=== PATIENT | male | born 1995 | race Caucasian/White ===

== ENCOUNTER 2023-02-21 10:55 | Emergency (ER) | payer OTHER, SELFPAY ==
[2023-02-21 11:08] VITALS: BP 138/89; PULSE 94; RESP 16; TEMP 36.4; O2SAT 99
--- NOTE | 2023-02-21 11:20 | ED.GENADULT ---
HPI - General Adult General Chief complaint: Ear Stated complaint: Ear Pain Source: patient, RN notes reviewed and old records reviewed Mode of arrival: ambulatory Limitations: no limitations History of Present Illness HPI narrative: 27-year-old male patient presents with left ear pain that started last p.m.. Patient states has slight congestion. Patient denies any other symptoms MD complaint: ear pain Onset (ago): day(s) (1) Related Data Home Medications Medication Instructions Recorded Confirmed amlodipine 10 mg tablet mg 02/21/23 bupropion HCl 150 mg 24 hr tablet, mg PO 02/21/23 extended release buspirone 15 mg tablet mg 02/21/23 cholecalciferol (vitamin D3) 125 02/21/23 mcg (5,000 unit) capsule (Dialyvite Vitamin D) famotidine 20 mg tablet mg 02/21/23 methylphenidate HCl 40 mg biphasic mg PO 02/21/23 30-70 capsule,extended release mycophenolate sodium 360 mg mg PO 02/21/23 tablet,delayed release prednisone 5 mg tablet mg 02/21/23 tacrolimus 1 mg capsule, mg 02/21/23 immediate-release Allergies Allergy/AdvReac Type Severity Reaction Status Date / Time amoxicillin Allergy Unknown Rash Verified 02/21/23 11:22 Review of Systems Constitutional: Constitutional: Reports no additional constitutional complaints, Denies body ache(s), Denies chills, Denies fatigue, Denies fever(s) and Denies headache(s) Eyes: Eyes: Reports no additional eye complaints and Denies blurry vision ENT: Reports system reviewed and no additional complaints, except as documented, Denies vertigo, Denies dizziness, Denies ear discharge, Reports otalgia, Denies facial pain, Denies headache(s), Denies nasal congestion, Denies nasal discharge, Denies sinus pain, Denies sinus pressure and Denies sore throat Cardiovascular: Cardiovascular: Reports no additional cardiovascular complaints, Denies chest pain, Denies chest pain at rest, Denies rapid heart rate and Denies dyspnea Respiratory: Respiratory: Reports no additional respiratory complaints, Denies chest congestion, Denies cough, Denies pain on inspiration, Denies pain with cough and Denies dyspnea Gastrointestinal: Gastrointestinal: Denies abdominal pain, Denies diarrhea, Denies nausea and Denies vomiting Integumentary/Breasts: Skin/Breast: Denies rash Neurologic: Reports system reviewed and no additional complaints, except as documented, Denies vertigo, Denies dizziness and Denies headache(s) Endocrine: Endocrine: Denies fatigue PMFSH Comments At the time of my signature, I reviewed and agree with the nursing past medical, surgical, social, and family history. There is no relevant family history pertinent to the patient complaint. Exam Const: General: cooperative, healthy appearing, no acute distress and well nourished Nutritional Appearance: well nourished Orientation/consciousness: patient oriented x3 Limitations: no limitations HENMT: Head: normal to inspection and normocephalic Ears: external ears normal, mastoids normal, Abnormal EAC present and TM abnormal bulging on the left and erythematous on the left Face/Nose/Sinus: normal facial exam Face and sinus: normal facial exam Mouth: Yes Normal oral and palatal mucosa present, Yes oropharynx normal and Yes moist mucous membranes Throat: tonsils normal, uvula midline and no uvular edema Eyes: General: appearance normal, both eyes and all related structures Sclera: sclerae normal Pupils: Equal, round and reactive pupils present Resp: Effort & Inspection: normal respiratory effort, able to speak in complete sentences, no audible wheezes, no cough, no respiratory distress and no retractions Cardio: Rate: regular rate Skin: General skin exam: normal color and no rashes or lesions noted Neuro: General: patient oriented x3 Cranial nerves: Yes Equal, round and reactive pupils present Psych: Appearance: grossly normal Mental Status: mental status grossly normal Speech and movement: Normal speech and movem
== END 2023-02-21 11:35 | disposition home or self-care (01) ==
PROVIDERS: Emergency Provider Registered Nurse; PCP Nurse Practitioner Family
DX: H66.002 Acute suppurative otitis media without spontaneous rupture of ear drum, left ear (principal); F41.9 Anxiety disorder, unspecified; F32.A Depression, unspecified; F90.9 Attention-deficit hyperactivity disorder, unspecified type; Z94.0 Kidney transplant status
CPT/HCPCS: 99203; G0463

== ENCOUNTER 2024-05-25 19:49 | Emergency (ER) | payer OTHER, SELFPAY ==
[2024-05-25 19:52] VITALS: BP 154/94; PULSE 88; RESP 20; TEMP 36.7; O2SAT 98
--- OUTSIDE RECORDS SUMMARY | 2024-05-25 19:52 | XMS_ITS | Referral Summary ---
Author Organization [facility] Address [address] [place] [address] Care Team Providers Care Litigation Services Manager Name Role Phone Yessy Wolfe NP Primary Care Provider [phone] Lexie Martin MD Unavailable Yesy Gavin RN Unavailable Encounters Date Type Department Care Team Description 05/05/2024 Orders Only [facility] Transplant Kidney [address] [id number] [place] [address] Yesy Gavin RN Kidney replaced by transplant (Primary Dx) 05/01/2024 Telephone [facility] Transplant Kidney [address] [phone] [place] [address] Yesy Gavin RN from Last 3 Months Allergies Active Allergy Reactions Criticality Noted Date Comments Amoxicillin Hives,Swelling,Rash Medium 01/30/2012 Happened when patient was a teenager Medications aspirin 81 mg enteric coated tablet Take 1 tablet (81 mg total) by mouth daily 30 tablet 08/24/19 22 Active cholecalciferol (Vitamin D3) 2000 unit tablet Take 1 tablet (2,000 Units total) by mouth daily 30 tablet 08/24/19 22 Active predniSONE (DELTASONE) 5 mg tablet TAKE ONE TABLET BY MOUTH EVERY DAY 30 tablet 09/05/19 24 Active biotin 10 mg tablet Active melatonin 10 mg tablet Active doxepin (SINEquan) 10 mg capsule Take 1 capsule (10 mg total) by mouth nightly 30 capsule 3 09/24/19 24 Active amLODIPine (NORVASC) 10 mg tablet TAKE ONE TABLET BY MOUTH EVERY DAY 30 tablet 11 09/26/19 24 Active PARoxetine (PAXIL) 20 mg tablet Take 1 tablet (20 mg total) by mouth every morning 90 tablet 1 10/11/19 24 Active methylphenidate CD (METADATE CD) 30 mg CR capsuleIndication s:Attention-Defic it Hyperactivity Disorder Take 1 capsule (30 mg total) by mouth every morning 30 capsule 12/11/19 24 Active famotidine (PEPCID) 20 mg tablet TAKE ONE TABLET BY MOUTH EVERY DAY 90 tablet 3 02/12/20 24 Active tacrolimus 1 mg immediate-release capsuleIndication s:immunosuppressi on Take 3 capsules (3 mg total) by mouth every morning AND 2 capsules (2 mg total) nightly. 150 capsule 11 03/10/19 [address] (MYFORTIC) 360 mg EC tabletIndications :Kidney replaced by transplant Take 1 tablet (360 mg total) by mouth 2 (two) times a day 60 tablet 05/02/19 [address] (MYFORTIC) 360 mg EC tabletIndications :Kidney replaced by transplant Take 1 tablet (360 mg total) by mouth 2 (two) times a day 60 tablet 11 05/04/19 24 025 Discontinued Active Problems Patient Care Coordination No te Formatting of this note migh t be different from the original. Verbal consent - Shaina (mother), Jason (father) [facility] Specialty: [facility] Specialty Program LABS: [facility] S/O'S: Monthly: FK; Q3 (EXP 05-02-2025) Labs: [facility] Caba HH: [facility] Home Care [facility] *Sunday and Sunday labs Problem Noted Date Diagnosed Date Injury of left toe 08/14/2023 Assessment & Plan (08/14/2023 8:30 PM CDT): Obtain x-ray today. 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 Patient states he is doing well with the Paxil. Has no concerns with anxiety or OCD symptoms today. He is having more issues with difficulty sleeping Assessment & Plan (08/14/2023 8:25 PM CDT): Questioning ocd diagnoses. He had previously been on zoloft but this did not help the intrusive thoughts. We will trial paxil titrating up to 20mg once daily. . Discussed starting dose and titration to full dose, possible SE and time frame for expected results. Call if any suicidal thoughts or questions concerning SE. Do not abruptly stop medication without calling office. Follow up in-- 4-8 weeks for recheck and continuation of medications. Assessment & Plan (02/02/2023 2:53 PM SECURITY ROVER): Discontinue sertraline. Try wellbutrin xl 150mg daily. Continue buspar.. 3 months Assessment & Plan (11/21/2022 10:00 AM CDT): Concerned about SSRI's and weight gain. Has gained over 10 -15 pounds in the last 6 months. We discussed exercise and diet. He cannot go off the prednisone due to his kidney transplant. Discussed SSRI's role. He denies depression, feels it's more anxiety. We will trial increasing the buspar to 15mg BID and then readd the methylphenidate CD which he has been off of for the last 2 months. Decrease zoloft down to 100mg for 30 days, and if successful, will further decrease down to 50mg daily. If needed, we could always go back and increase it or change medication to prozac or trintellix. Pt was agreeable with plan of care. Assessment & Plan (05/18/2022 9:27 AM CDT): Stable on current medication. Continue sertraline as ordered. May follow up in 6 months Assessment & Plan (01/09/2022 9:22 AM SECURITY ROVER): Stable. Doing well on sertraline 100 mg once daily. Denies depression at this time. Believes that sertraline does help some with anxiety. We discussed increasing the sertraline for anxiety but he does not believe it has been all that helpful for anxiety where it has been helpful for his mood stabilization Kidney transplanted 09/16/2021 Assessment & Plan (12/06/2021 8:39 AM CDT): Improved. Creatinine is down. Taking medications as prescribed. Follows with [facility] transplant Vitamin D deficiency 07/03/2018 Primary insomnia 09/06/2017 Assessment & Plan (09/25/2023 3:35 PM CDT): Melatonin is not working. We did discuss trying [id number] such as Benadryl, Tylenol p.m. or Unisom. We discussed the difference between these medications. I gave him doxepin to try as prescription medication if [id number] did not show any improvement. I asked him to contact me via [employer] in 1-2 months with update. Otherwise we can have him follow-up in 6 months Assessment & Plan (09/06/2017 2:54 PM CDT): Will refer to psychiatry Attention deficit disorder (ADD) without hyperac tivity 05/14/2017 Assessment & Plan (09/25/2023 3:33 PM CDT): Continues to be currently controlled with Metadate CD 40 Assessment & Plan (08/14/2023 8:26 PM CDT): Stable on current medication. Continue metadate cd as ordered. May follow up in 6 months Assessment & Plan (02/02/2023 2:51 PM SECURITY ROVER): Continue methylphenidate Assessment & Plan (11/25/2022 9:37 AM CDT): Stable. Will continue metadate cd 40mg daily. Assessment & Plan (05/18/2022 9:28 AM CDT): Stable on current medication. Continue methylphenidate CD 40 as ordered. May follow up in 6 months Assessment & Plan (02/16/2022 9:22 AM SECURITY ROVER): Improved. Try increasing Metadate CD 40 mg once daily. Will have him follow-up in 3 months. He may call for refills are message through [employer] in the interim. May message if there are any problems or concerns with medication Assessment & Plan (01/09/2022 9:21 AM SECURITY ROVER): Improved but finds it is wearing off. Will change to Metadate CD 30 mg once daily. I asked him to call me if he is having any problems or difficulties with the change in medication. Otherwise will see him back in 1 month to evaluate Assessment & Plan (12/06/2021 8:36 AM CDT): Restarting Methylphenidate, with extended release formulation, ER 20mg. Follow up in 1 month for medication check. Assessment & Plan (09/06/2017 3:03 PM CDT): Will likely restart medication in the fall when restarting classes. However, I also referred him to psychiatry for insomnia evaluation. Assessment & Plan (05/14/2017 1:04 PM CDT): Discussed risks/benefits and options for treatment. He admits to a little anxiety. I discussed trying straterra with him and he was agreeable. He mentioned final exams coming up in about a month, so I did give him short acting ritalin to try taking for exams and as needed. We discussed medication safety and potential for abuse. If medication is lost or stolen, I cannot replace it. He will f/u in June for recheck, right after school gets out for the summer. Resolved Problems Problem Noted Date Diagnosed Date Resolved Date Annual physical exam 05/18/2022 024 Assessment & Plan (08/14/2023 8:27 PM CDT): -Recommended: Healthy diet. Avoiding junk food/fast food. -30 minutes of exercise most days of the week. Increase to 45 minutes for weight loss. Immunizations: Up to date continue present plan Follow-up in 1 year. Assessment & Plan (05/18/2022 9:27 AM CDT): -Recommended: Healthy diet. Avoiding junk food/fast food. -30 minutes of exercise most days of the week. Increase to 45 minutes for weight loss. Immunizations: Up to date continue present plan, call if any problems Follow-up in 6 months. LENA (renal artery stenosis) 09/27/2021 08/14/2023 Overview (09/27/2021): Added automatically from request for surgery [id number] Encounter for change or removal of drains 09/22/2021 12/06/2021 Removal of staple 09/16/2021 12/06/2021 Kidney transplant candidate 08/23/2021 12/06/2021 Decreased appetite 04/01/2020 Assessment & Plan (04/01/2020 3:03 PM SECURITY ROVER): Will try adding remeron for sleep/ appetite stimulant Bilateral hydronephrosis 07/03/2018 Persistent proteinuria 07/03/201812/06 History of pyelonephritis 05/19/2018 Assessment & Plan (05/22/2018 1:17 PM CDT): History of chronic bilateral hydronephrosis and urethral anomalies, congenital, 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 Last UTI/Pyelo was about 2 years ago and has not followed with Urology as an adult yet. Remains afebrile, hemodynamically stable, non-oliguric. Presented with R>L flank pain and suprapubic pain, leukocytosis, and hematuria. Now all of these sx almost completely resolved. Tolerating cipro well. - CT stone protocol without stones but has mod bilateral hydronephrosis. UA positive, UCx neg here. No prior positive UCx here at [facility]. - OSH BCx NGTD 05/18, UCx with mixed distal urethral contaminants . Per parents, BCx were obtained after first dose of ceftriaxone but UCx was before. - Cont empiric cipro renally dosed 500mg q18h for total of 10 day course (last day 05/28), s/p empiric ceftriaxone at admission before narrow 05/21. No culture data to guide abx choice. - Given his chronic bilateral hydronephrosis, do not anticipate that urgent Urology consult is needed at this time. May recommend outpatient Urology follow up for complicated UTIs. - Did not require any opiates over last 24 hours, plan to discharge with 3 day oxycodone 5mg q8h PRN that father and pt could fill if needed. 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 Last UTI/Pyelo was about 2 years ago and has not followed with Urology as an adult yet. Remains afebrile, hemodynamically stable, non-oliguric. Presented with R>L flank pain and suprapubic pain. - CT stone protocol without stones but has mod bilateral hydronephrosis. UA positive, UCx neg here. No prior positive UCx here at [facility]. - OSH BCx NGTD 05/18, UCx with mixed distal urethral contaminants . Per parents, BCx were obtained after first dose of ceftriaxone but UCx was before. - Switch from ceftriaxone to empiric cipro renally dosed given continued clinical improvement (urine clearing, increasing UOP, decreasing flank pain), decreasing leukocytosis. No culture data to guide abx choice. - Given his chronic bilateral hydronephrosis, do not anticipate that urgent Urology consult is needed at this time. May recommend outpatient Urology follow up for complicated UTIs. 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 Last UTI/Pyelo was about 2 years ago and has not followed with Urology as an adult yet. Remains afebrile, hemodynamically stable, non-oliguric. - CT stone protocol without stones but has mod bilateral hydronephrosis. UA positive, UCx neg here. No prior positive UCx here at [facility]. - OSH BCx NGTD 05/18, UCx with mixed distal urethral contaminants . Per parents, BCx were obtained after first dose of ceftriaxone - Cont ceftriaxone with plan to transition to PO regimen if Cr and clinically continues to improve, h/o vanc and amox allergy but has tolerated ceftriaxone well in the past. - Given his chronic bilateral hydronephrosis, do not anticipate that urgent Urology consult is needed at this time. May recommend outpatient Urology follow up for complicated UTIs. 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 Last UTI/Pyelo was about 2 years ago. Hasn't followed with Urology as an adult. Afebrile here, OSH records reviewed, CT stone protocol, no stones but mod bilateral hydronephrosis, UA positive, f/u OSH blood and urine cultures. Pt's parents are very knowledgeable and involved in his care, state that blood cultures were obtained after first dose of ceftriaxone. - continue ceftriaxone 1g IV daily, h/o vanc and amox allergy but has tolerated ceftriaxone well in the past. - never had positive urine cx in our system here (was a [facility] pt) - Given his chronic bilateral hydronephrosis, do not anticipate that urgent Urology consult is needed at this time. May recommend outpatient Urology follow up for complicated UTIs. - [place] prn for pain and dilaudid low dose 2nd line for breakthrough pain Acute kidney injury 05/19/2018 07/18/19 20 Assessment & Plan (05/22/2018 1:18 PM CDT): ANAM on CKD, present on admission, in the setting of pyelonephritis (based on above sx despite no significant findings on CT). Baseline Cr in the high 4 range, was 4.8 at OSH. Down to 4.2 at admission, up to 4.7, and down to 4.3 which appears his baseline. - Anticipate improvement given drastic improvement in urine output, had dark urine, now clear.. - Having good UOP and will have outpatient renal follow up as documented above. Assessment & Plan (05/21/2018 3:53 PM CDT): ANAM on CKD, present on admission, in the setting of pyelonephritis. Baseline Cr in the high 4 range, was 4.8 at OSH. Down to 4.2 at admission, up to 4.7, and down to 4.3. UOP increasing. - Anticipate improvement given drastic improvement in urine output, had dark urine, now clear.. - Strict I&Os, gentle rehydration. - Consider Renal consult if it continues to worsen. Assessment & Plan (05/20/2018 3:46 PM CDT): ANAM on CKD, present on admission, in the setting of pyelonephritis. Baseline Cr in the high 4 range, was 4.8 at OSH. Down to 4.2 at admission and back up to 4.6 overnight. - Anticipate improvement given drastic improvement in urine output, had dark urine, now clear.. - Strict I&Os, gentle rehydration. - Consider Renal consult if it continues to worsen. Assessment & Plan (05/19/2018 12:13 AM CDT): ANAM on CKD, present on admission, in the setting of pyelonephritis. Baseline Cr in the high 4 range, was 4.8 at OSH. - Anticipate improvement given drastic improvement in urine output, had dark urine, now clear. - Strict I&Os, gentle rehydration. - Consider Renal consult if it continues to worsen. Hypernatremia 05/18/2018 07/18/2019 Hypokalemia 05/18/2018 07/18/2019 UTI (urinary tract infection) 05/18/2018 07/18/2019 Stage 4 chronic kidney disease (CMS/HCC) 03/07/2018 12/06/2021 Assessment & Plan (01/27/2020 8:06 PM SECURITY ROVER): Continues to follow with nephrology and transplant team. Wants to see air carrier inspector to discuss possible nutritional aspects of his disease. Referral placed. 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 Follows w/ Dr. Martin here, recently transitioned care from [facility] to adult care 02/2018. Clinically improving with increasing UOP and stable Cr at 4.3 (baseline). - Encourage PO intake. - Pt rescheduled for earlier Renal appointment with Dr. Martin to 06/06/2018 (prior appointment in 08/2018 kept for now as well). Assessment & Plan (05/21/2018 3:50 PM CDT): Chronic in the setting of congenital urethral anomalies as above. Follows w/ Dr. Martin here, recently transitioned care from [facility] to adult care 02/2018. Clinically improving with increasing UOP and improving Cr. - Cont IVF for today - Encourage PO intake. - Hold on Renal consult for now, will reschedule pt for an earlier appointment with Dr. Martin from 08/2018. Assessment & Plan (05/20/2018 3:32 PM CDT): Chronic in the setting of congenital urethral anomalies as above. Follows w/ Dr. Martin here, recently transitioned care from [facility] to adult care 02/2018 - cont IVF hydration for one more day, s/p 3L so far with fluctuating renal function. - If creatinine continues to worsen in AM, will obtain Renal consult in AM. Assessment & Plan (05/19/2018 12:09 AM CDT): Chronic in the setting of congenital urethral anomalies as above. Follows w/ Renal here - just transitioned from Peds Renal to Adult Renal 02/2018 - IV rehydration, already received 2L at OSH, will give 1 more liter of IVF. Also tolerating po intake well. - Renal consult in a.m. If Cr worsening. Can defer if improving as urine output has greatly improved. Secondary hyperparathyroidism of renal origin 03/07/19 19 08/14/2023 Chronic fatigue 09/06/2017 12/06/2021 Assessment & Plan (09/06/2017 3:04 PM CDT): Will check thyroid levels. He has had cbc and cmp drawn by manager mining from [facility] Depression with anxiety 02/05/201204/2022 Assessment & Plan (02/16/2022 9:22 AM SECURITY ROVER): Stable. Room for improvement. Will increase sertraline to 150 mg once daily. I then gave him room to increase the BuSpar from 7.5 mg b.i.d. to 15 mg b.i.d. as needed. Will then have him follow-up in 3 months for recheck of medication Assessment & Plan (01/09/2022 9:23 AM SECURITY ROVER): Will add BuSpar for anxiety. Discussed starting at 7.5 mg b.i.d.. He can play with the 2nd dose whether he wants to take it in the later afternoon or at bedtime. I asked him to call me if he has any problems obtaining the medication or any side effects with medication. Otherwise will see him in 1 month for recheck Assessment & Plan (12/06/2021 8:40 AM CDT): Doing well with sertraline 100mg daily. Believes it is helping with depression. Will check back in 1 month and consider increasing for anxiety vs. Adding buspar if needed. Has good social support with parents. Misses being in [place] with friends. Studying for [employer] SAT. Assessment & Plan (04/01/2020 3:02 PM SECURITY ROVER): Depression stable. Anxiety improving. Sleep is still problematic. Appetite is still decreased. On recommendations of air carrier inspector, and given problematic sleep, will add Remeron at bedtime. Start at 7.5mg at bedtime for 14 days. If tolerated, increase to 15mg. Can f/u in 4-8 weeks for recheck Assessment & Plan (03/02/2020 7:36 PM SECURITY ROVER): Will keep zoloft at 100mg daily and start buspar 5mg bid. Continue trazodone 50mg nightly prn. F/u 1 months Assessment & Plan (01/27/2020 8:07 PM SECURITY ROVER): Discussed with him that I would like to treat his depression before restarting any medication for his ADD. Pt is in agreement. He has been on zoloft in the past. It appears around the year 2012. He has also tried straterra in the past, which I had placed him on In 2017. Also in 2012 he had been on trazodone. He does not recall any ill effects from the zoloft. Will restart zoloft 50mg x 7 days, then increase to 100mg daily. Add trazodone back at 25-50mg at bedtime to help with sleep. F/u 1 month for recheck. Will consider re-introducing medication for ADD if needed. Refer to counseling as well, per pt request. Personal history of other di seases of the respiratory system 07/18/2019 Overview (03/13/2018): History of acute bronchitis - (Added by TW Conv) Immunizations Immunization Administration Dates Next Due DTaP 05/03/1998, 8,03/02/1997,01/12 DTaP, Unspecified 10/31/2001 Hep A, Unspecified 11/22/2009,08/24/2008 Hep B, Adolescent or Pediatric 08/01/1997,1996,1996 HiB 02/02/1998, 8,03/02/1997,01/12 Influenza, Quadrivalent, Kim l Culture-based MDCK, Antibiotic Free, Intramuscular 02/22/2018 Influenza, Quadrivalent, Kim l Culture-based MDCK, Preservative Free, Antibiotic Free, Intramuscular 12/23/2019 Influenza, Quadrivalent, Spl it, Preservative Free, Intramuscular 11/21/2022,12/06/2021 Influenza, Unspecified 02/19/2023(Deferr ed: Patient Refused),02/19/2022(Deferred: Patient Refused),12/23/2019,03/05/2017 MMR 10/31/2001,02/02/1998 Meningococcal B, Recombinant (Trumenba) 09/15/2016 Meningococcal MCV4P (Menactra) 12/04/2013,2008 OPV 05/03/1998,03/02/1997,01/12/1997 Pfizer SARS-CoV-2 Monovalent Vaccination (12+ Yrs) PURPLE 05/12/2020 Pneumococcal Conjugate Pcv20 11/21/2022 Polio, Unspecified 10/31/2001 Tdap 09/15/2016,01/01/2007 Varicella 11/22/2009,11/09/1997 Social History Tobacco Use Types Packs/Day Years Used Date Smoking Tobacco: Former E-cigarettes Quit: 2018 Smokeless Tobacco: Never Tobacco Cessation:Counseling Given: Not Answered Alcohol Use Standard Drinks/Week Comments Yes 0 (1 standard drink = 0.6 oz pur e alcohol) Social Connection and Isolat ion Panel [NHANES] Answer Date Recorded In a typical week, how many times do you talk on the phone with family, friends, or neighbors? More than three times a week 08/24/2021 How often do you get togethe r with friends or relatives? Three times a week 08/24/2021 Attends Baptism Services Not on file 08/24 Active Member of Clubs or Organizations Not on f ile 08/24/2021 Attends Club or Organization Meetings Not on sriram e 08/24/2021 Are you , , di vorced, , never , or living with a partner? Never 08/24/2021 AUDIT-C Answer Date Recorded Q1: How often do you have a drink containing alcohol? Never 01/23/2023 Q2: How many drinks containi ng alcohol do you have on a typical day when you are drinking? Patient does not drink Q3: How often do you have si x or more drinks on one occasion? Never 01/23/2023 Overall Financial Resource Strain (CARDIA) Answe r Date Recorded How hard is it for you to pa y for the very basics like food, housing, medical care, and heating? Not hard at all 08/24/2021 PHQ-2 Answer Date Recorded PHQ-2 Total Score (If total score is 3 or more points, staff should administer the PHQ-9) 0 09/24/2023 Hunger Vital Sign Answer Date Recorded Within the past 12 months, y ou worried that your food would run out before you got the money to buy more. Never true 08/25/19 22 Within the past 12 months, t he food you bought just didn't last and you didn't have money to get more. Never true 08/24/2021 PRAPARE - Transportation Answer Date Re corded In the past 12 months, has l ack of transportation kept you from medical appointments or from getting medications? No 07/2021 In the past 12 months, has l ack of transportation kept you from meetings, work, or from getting things needed for daily living? No 08/24/2021 Sex and Gender Information Value Date Recorded Sex Assigned at Not on file Legal Sex Male 9:06 AM SECURITY ROVER Gender Identity Male 09/10/2019 11:12 AM CDT Sexual Orientation Mar[place] 09/13/2021 7: 42 AM CDT Last Filed Vital Signs Vital Sign Reading Time Taken Comments Blood Pressure 124/70 09/24/2023 11:37 AM CDT Pulse 70 09/24/2023 11:37 AM CDT Temperature 36.8 C (98.2 F) 09/24/2023 11:37 AM CDT Respiratory Rate 16 01/23/2023 11:10 AM SECURITY ROVER Oxygen Saturation 98% 09/24/2023 11:37 AM CDT Inhaled Oxygen Concentration - - Weight 70.3 kg (155 lb) 09/24/2023 11:37 AM CDT Height 177.8 cm (5' 10 ) 09/24/2023 11:37 AM CDT Body Mass Index 22.24 09/24/2023 11:37 AM CDT Plan of Treatment Scheduled Procedures Name Priority Associated Diagnoses Date/Ti me TRANSPLANT KIDNEY ESRD (end stage renal disease) (HCC) Medical Devices Implanted Type Area Television Repairman Device Identifier Shelf Expiration Date Model / Serial / Lot Innovid Bethany Angio-Seal Vip 6fr Closere Device [id number] - [id number] - [id number] Implanted:Qty: 1 on 10/11/2021 by Kenneth Ilsas MD at [facility] Collagen Right: Femoral Ter[employer] Medical Bethany 07/19/2022 [id number] / [id number] / [id number] [employer] Bethany Stent Drug Eluting S Claire Caballero Mr [id number] - [id number] - [id number] Implanted:Qty: 1 on 10/11/2021 by Tato Choi MD at [facility] Stent Right: Renal Artery [employer] Bethany 03/07/2022 [id number] / [id number] / [id number] Explanted Type Area Television Repairman Device Identifier Shelf Expiration Date Model / Serial / Lot Help [employer] Double-J 6fr 20cm 100cm 1 Step Insert Push Catheter Conde Suture [id number] - [id number] Implanted:Qt y: 1 on 08/23/2021 by Lincoln Carrero MD at [facility] Explanted:Qt y: 1 on 09/22/2021 by Beatriz Pollard NP Stent Right: Transplanted Ureter Help [employer] Inc [id number] 09/22/2025 [id number] / / [id number] Procedures Procedure Name Priority Date/Time Associated Diagnosis Comments HEPATITIS C RNA, QUANTITATIVE, PCR Routine 09/23/2021 9:00 AM CDT from Last 3 Months or Most Recently Relevant to Health Maintenance Results * Hepatitis C (HCV) RNA PCR, quantitative (09/23/2021 9:00 AM CDT) [facility] HCV RNA result Not Detected [facility] Comment: The quantifiable range of this assay is 15 IU/mL to 100,000,000 IU/mL (1.18 log IU/mL to 8.00 log IU/mL). Testing was performed by the [employer] 6800 HCV Test ([employer] Testing performed at [facility] Current Interpretive Data was last revised on 2020 Blood 09/23/2021 9:00 AM CDT 09/23/2021 1:26 PM CDT us Lincoln Carrero MD LAB MICROBIOLOGY - GENERAL ORDERABLES Final Result [facility] [place] [address] from Last 3 Months or Most Recently Relevant to Health Maintenance Insurance [employer] [facility] [id number] [facility] [id number] MEDICARE [facility] [id number] MEDICARE [facility] Advance Directives For more information, please contact: [phone] * Full Code (Latest Code Status on File) Date Activated Date Inactivated Comments 08/23/2021 12:56 PM 08/26/2021 7:01 PM * Full Code Date Activated Date Inactivated Comments 08/23/2021 12:39 AM 08/23/2021 12:56 PM * Full Code Date Activated Date Inactivated Comments 05/18/2018 11:35 PM 05/22/2018 7:10 PM Care Teams Litigation Services Manager Relationship Specialty Start Date End Date Yessy Wolfe NP PCP - General Family Medicine 03/24/19 Lexie Martin MD [address] [facility] [address] [place] [address] Referring Physician Nephrology 09/26/19 Yesy Gavin, RN [address] [facility] [address] [place] [address] Market Research Lead 08/23/21
--- OUTSIDE RECORDS SUMMARY | 2024-05-25 19:52 | XMS_ITS | Clinical Summary ---
Author Organization [facility] Address [address] [place] [address] Care Team Providers Care Reshipping Clerk Name Role Phone Yessy Wolfe APRN-ELECTRICIAN CONSTRUCTOR SUPERVISOR Primary Care Provider [phone] Source Comments [facility],non-ssm rehab Affiliates and Associated Physician Practices is amultiple site organization consisting of ambulatory clinics and hospital sitesin [place], [place], [place] and [place]. This disclosure is being madepursuant to the Care Everywhere program and may not contain all information available regarding this patient. Last updated 17.[facility] Allergies Active Allergy Reactions Criticality Noted Date Comments Amoxicillin Rash Medium 01/09/2018 Vancomycin Rash Medium 01/09/2018 Medications * Be aware that medications may not be up to date on this document. Alwaysverify current medications with the patient. Medication Sig Dispensed Refills Start Date End Date Status calcitriol (ROCALTROL) 0.5 MCG capsule take one capsule by mouth every day 07/31/2012 Active pantoprazole EC (PROTONIX) 40 MG tablet Take 1 tablet by mouth once daily 90 tablet 4 01/09/2018 Active Social History Tobacco Use Types Packs/Day Years Used Date Smoking Tobacco: Some Days Smokeless Tobacco: Never Alcohol Use Standard Drinks/Week Comments Yes 0 (1 standard drink = 0.6 oz pur e alcohol) 3-4 days per week Sex and Gender Information Value Date Recorded Sex Assigned at Not on file Gender Identity Not on file Sexual Orientation Not on file Last Filed Vital Signs Vital Sign Reading Time Taken Comments Blood Pressure 112/72 01/09/2018 8:50 AM PROGRAM MANAGEMENT PROFESSIONAL Pulse 58 01/09/2018 8:52 AM PROGRAM MANAGEMENT PROFESSIONAL Temperature 36.4 C (97.6 F) 01/09/2018 7:53 AM PROGRAM MANAGEMENT PROFESSIONAL Respiratory Rate 11 01/09/2018 8:52 AM PROGRAM MANAGEMENT PROFESSIONAL Oxygen Saturation 99% 01/09/2018 8:52 AM PROGRAM MANAGEMENT PROFESSIONAL Inhaled Oxygen Concentration - - Weight 61.2 kg (135 lb) 01/09/2018 7:51 AM PROGRAM MANAGEMENT PROFESSIONAL Height 180.3 cm (5' 11 ) 01/09/2018 7:51 AM PROGRAM MANAGEMENT PROFESSIONAL Body Mass Index 18.83 01/09/2018 7:51 AM PROGRAM MANAGEMENT PROFESSIONAL Plan of Treatment Health Maintenance Due Date Last Done Comments HIV SCREENING 11/12/2011 HEPATITIS C SCREENING 11/07/2014 DTAP/TDAP/TD VACCINES (1 - Tdap) 11/12/2015 HEPATITIS B VACCINE (1 of 3 - 19+ 3-dose series) 11/12/2015 COVID-19 VACCINE ( - 2023-2 5 season) 2023 DEPRESSION SCREENING 02/20/2024 INFLUENZA VACCINE (Season Ended) 2024 03/05/19 18 ZOSTER VACCINE (1 of 2) 2046 HIB VACCINE Aged Out No longer eligi ble based on patient's age to complete this topic HPV VACCINE Aged Out No longer eligi ble based on patient's age to complete this topic MENINGOCOCCAL (Group B) VACC INE SHARED DECISION-MAKING Aged Out No longer eligibl e based on patient's age to complete this topic MENINGOCOCCAL GROUPS A/C/Y/W VACCINE Aged Out No longer eligible b ased on patient's age to complete this topic PNEUMOCOCCAL VACCINE Aged Out No long er eligible based on patient's age to complete this topic Care Teams Reshipping Clerk Relationship Specialty Start Date End Date Yessy Wolfe APRN-TUAN PCP - General Nurse Practitioner Family 01/09/18
--- OUTSIDE RECORDS SUMMARY | 2024-05-25 19:52 | XMS_ITS | Clinical Summary ---
Author Organization [facility] Address [address] [place] [address] Phone Care Team Providers Care Surface To Air Weapons Officer Name Role Phone Yessy Wolfe APRN, APPLE PEELER OPERATOR Primary Care Provider Allergies Active Allergy Reactions Criticality Noted Date Comments Amoxicillin Hives 05/17/2018 Medications calcitRIOL (ROCALTROL) 0.5 MCG Capsule Take 0.5 mcg by mouth daily. Active pantoprazole (PROTONIX) 40 MG Tablet Delayed Response Take 40 mg by mouth daily. Active methylphenidate (RITALIN) 10 MG Tablet Take 10 mg by mouth daily as needed. Active HYDROcodone-shelly taminophen (NORCO) 5-325 MG Tablet Take 1-2 Tabs by mouth every 6 hours as needed for Moderate or more severe pain. 1 Tab 9 Active sodium chloride 0.9 % Solution 250 mL by Intravenous route continuous. 1 mL 9 Active polyethylene glycol (GLYCOLAX, MIRALAX) Pack Take 1 Packet by mouth daily as needed for Constipation. Dissolve in 4-8 oz of liquid. 1 Packet 9 Active Active Problems Problem Noted Date Diagnosed Date Hypernatremia 05/18/2018 Hypokalemia 05/18/2018 CKD (chronic kidney disease) stage 4, GFR 15-29 ml/min 05/18/2018 UTI (urinary tract infection) 05/18/2018 Family History Medical History Relation Name Comments Migraines Mother Relation Name Status Comments Mother Social History Tobacco Use Types Packs/Day Years Used Date Smoking Tobacco: Never Smokeless Tobacco: Never Alcohol Use Standard Drinks/Week Comments Yes 0 (1 standard drink = 0.6 oz pur e alcohol) Sex and Gender Information Value Date Recorded Sex Assigned at Not on file Legal Sex Male 9:04 PM CLOTHES PRESSER Gender Identity Not on file Sexual Orientation Not on file Last Filed Vital Signs Vital Sign Reading Time Taken Comments Blood Pressure 113/70 05/18/2018 3:07 PM CDT Pulse 84 05/18/2018 7:55 PM CDT Temperature 36.8 C (98.2 F) 05/18/2018 3:07 PM CDT Respiratory Rate 20 05/18/2018 7:55 PM CDT Oxygen Saturation 99% 05/18/2018 7:55 PM CDT Inhaled Oxygen Concentration - - Weight 68.6 kg (151 lb 4.8 oz) 05/17/2018 9:58 P M CDT Height 177.8 cm (5' 10 ) 05/17/2018 5:41 PM CDT Body Mass Index 21.71 05/17/2018 5:41 PM CDT Plan of Treatment Health Maintenance Due Date Last Done Comments Hepatitis C Virus (HCV) Screening 1996 Pneumococcal Immunization Combined (1 of 2 - PCV) 11/12/2015 Influenza Immunization (#1) 2023 02/22/2018 SARS-COV-2 Immunization ( season) 2023 12/22/2020, 05/12/2020, 04/22/2020 Respiratory Syncytial Virus (RSV) Immunization (Adult) (1 - 1-dose 75+ series) 11/12/2071 Hepatitis B Immunization Completed 998, 01/12/1997, 1996 Meningococcal Immunization (ACWY) Completed 12/04/2013, 08/24/2008 DTaP/Tdap/Td Immunization Discontinued 2016, 01/01/2007, 10/31/2001, Additional history exists Meningococcal B Immunization Discontinued 09/15/2016 TdaP Immunization Completed 09/15/2016, 01/01/2007 Rotavirus Immunization Aged Out No lo nger eligible based on patient's age to complete this topic [place] [address] [address] [place] [address] OAP Advance Directives * Full Code (Latest Code Status on File) Date Activated Date Inactivated Comments 05/18/2018 1:54 AM 05/18/2018 11:30 PM CPR-Full Tr eatment: FULL ARREST: Attempt Resuscitation/CPR wit intubation and mechanical ventilation. PRE-ARREST: Use entire range of life support measures to stabilize the patient. Care Teams Surface To Air Weapons Officer Relationship Specialty Start Date End Date Yessy Wolfe, ROUNDING MACHINE TENDER, APPLE PEELER OPERATOR [address] [place] [address] [address] [place] [address] [place] [id number] PCP - General Advanced Practice Nurse 05/17/18
--- OUTSIDE RECORDS SUMMARY | 2024-05-25 19:52 | XMS_ITS | Clinical Summary ---
Author Organization [facility] Address [address] [place] [address] Care Team Providers Care Mitering Machine Operator Name Role Phone Yessy Wolfe NP Primary Care Provider [phone] Lexie Martin MD Unavailable [phone] Yesy Gavin RN Unavailable [phone] Allergies Active Allergy Reactions Criticality Noted Date [...] Shaina (mother), Jason (father) Pharmacy: [facility] Specialty: [facility] Specialty Program LABS: [facility] S/O'S: Monthly: FK; Q3 (EXP 05-02-2025) Labs: [facility] [place] HH: [facility] Home Care [place] *Sunday and Sunday labs [...] medications. Assessment & Plan (02/02/2023 2:53 PM QUALITY SYSTEM MANAGER): Discontinue sertraline. Try wellbutrin xl 150mg daily. [...] months Assessment & Plan (01/09/2022 9:22 AM QUALITY SYSTEM MANAGER): Stable. Doing well on sertraline 100 mg [...] down. Taking medications as prescribed. Follows with [facility] transplant Vitamin D deficiency 07/03/2018 Primary insomnia 09/06/2017 Assessment & Plan (09/25/2023 3:35 PM CDT): Melatonin is not working. We did discuss trying txxo-gyb-vdynhpke such as Benadryl, Tylenol p.m. or Unisom. We discussed the difference between these medications. I gave him doxepin to try as prescription medication if jlyi-ptv-ontreoql did not show any improvement. I asked him to contact me via 7-bites in 1-2 months with update. Otherwise we [...] months Assessment & Plan (02/02/2023 2:51 PM QUALITY SYSTEM MANAGER): Continue methylphenidate Assessment & Plan (11/25/2022 9:37 AM CDT): Stable. Will continue metadate cd 40mg daily. Assessment & Plan (05/18/2022 9:28 AM CDT): Stable on current medication. Continue methylphenidate CD 40 as ordered. May follow up in 6 months Assessment & Plan (02/16/2022 9:22 AM QUALITY SYSTEM MANAGER): Improved. Try increasing Metadate CD 40 mg once daily. Will have him follow-up in 3 months. He may call for refills are message through 7-bites in the interim. May message if there are any problems or concerns with medication Assessment & Plan (01/09/2022 9:21 AM QUALITY SYSTEM MANAGER): Improved but finds it is wearing off. [...] (09/27/2021): Added automatically from request for surgery [id number] Encounter for change or removal of drains 09/22/2021 12/06/2021 Removal of staple 09/16/2021 12/06/2021 Kidney transplant candidate 08/23/2021 12/06/2021 Decreased appetite 04/01/2020 Assessment & Plan (04/01/2020 3:03 PM QUALITY SYSTEM MANAGER): Will try adding remeron for sleep/ appetite [...] here. No prior positive UCx here at [facility]. - OSH BCx NGTD 05/18, UCx with mixed distal urethral contaminants . Per parents, BCx were obtained after first dose of ceftriaxone but UCx was before. - Cont empiric cipro renally dosed 500mg q18h for total of 10 day course (last day 05/28), s/p empiric ceftriaxone at admission before narrow 4/2. No culture data to guide abx choice. [...] here. No prior positive UCx here at [facility]. - OSH BCx NGTD 05/18, UCx with [...] Urology follow up for complicated UTIs. - Afton prn for pain and dilaudid low dose [...] here. No prior positive UCx here at [facility]. - OSH BCx NGTD 05/18, UCx with [...] Urology follow up for complicated UTIs. - Afton prn for pain and dilaudid low dose [...] cx in our system here (was a [facility] pt) - Given his chronic bilateral hydronephrosis, do not anticipate that urgent Urology consult is needed at this time. May recommend outpatient Urology follow up for complicated UTIs. - Afton prn for pain and dilaudid low dose [...] 12/06/2021 Assessment & Plan (01/27/2020 8:06 PM QUALITY SYSTEM MANAGER): Continues to follow with nephrology and transplant team. Wants to see box worker to discuss possible nutritional aspects of his disease. Referral placed. 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 Follows w/ Dr. Martin here, recently transitioned care from [facility] to adult care 02/2018. Clinically improving with [...] Dr. Martin here, recently transitioned care from [facility] to adult care 02/2018. Clinically improving with [...] Dr. Martin here, recently transitioned care from [facility] to adult care 02/2018 - cont IVF [...] has had cbc and cmp drawn by research dairy farm supervisor from [facility] Depression with anxiety 02/05/201204/2022 Assessment & Plan (02/16/2022 9:22 AM QUALITY SYSTEM MANAGER): Stable. Room for improvement. Will increase sertraline to 150 mg once daily. I then gave him room to increase the BuSpar from 7.5 mg b.i.d. to 15 mg b.i.d. as needed. Will then have him follow-up in 3 months for recheck of medication Assessment & Plan (01/09/2022 9:23 AM QUALITY SYSTEM MANAGER): Will add BuSpar for anxiety. Discussed starting [...] social support with parents. Misses being in [place] with friends. Studying for L SAT. Assessment & Plan (04/01/2020 3:02 PM QUALITY SYSTEM MANAGER): Depression stable. Anxiety improving. Sleep is still problematic. Appetite is still decreased. On recommendations of box worker, and given problematic sleep, will add Remeron at bedtime. Start at 7.5mg at bedtime for 14 days. If tolerated, increase to 15mg. Can f/u in 4-8 weeks for recheck Assessment & Plan (03/02/2020 7:36 PM QUALITY SYSTEM MANAGER): Will keep zoloft at 100mg daily and start buspar 5mg bid. Continue trazodone 50mg nightly prn. F/u 1 months Assessment & Plan (01/27/2020 8:07 PM QUALITY SYSTEM MANAGER): Discussed with him that I would like to treat his depression before restarting any medication for his ADD. Pt is in agreement. He has been on zoloft in the past. It appears around the year 2012. He has also tried straterra in the past, which I had placed him on In 2018. Also in 2012 he had been on [...] History of acute bronchitis - (Added by SEBAS Justin) Encounters Date Type Department Care Team Description 05/05/2024 Orders Only [facility] Transplant Kidney [address] [facility] [phone] [place] [address] Yesy Gavin RN Kidney replaced by transplant (Primary Dx) 05/01/2024 Telephone [facility] Transplant Kidney [address] [facility] [phone] [place] [address] Yesy Gavin, BLACK from Last 3 Months Immunizations Immunization Administration Dates Next Due DTaP [...] Polio, Unspecified 10/31/2001 Tdap 09/15/2016,01/01/2007 Varicella 11/22/2009,11/09/1997 Surgical History Surgery Date Site/Laterality Comments CYSTOSCOPY W/ TRANSURETHRAL RESECTION OF POSTERIOR URETHERAL VALVES KIDNEY TRANSPLANT 08/23/2021 Medical History Medical History Date Comments Meningitis Bronchitis Posterior urethral valves (PUV) Chronic kidney disease (CKD) , stage IV (severe) ([facility]) ADHD (attention deficit hype ractivity disorder) Secondary hyperparathyroidis m of renal origin History of pyelonephritis GERD (gastroesophageal reflux disease) Stage 4 chronic kidney disease (HCC) 03/07/2018 LENA (renal artery stenosis) 09/27/2021 Adde d automatically from request for surgery [id number] Family History Medical History Relation Name Comments Arthritis Maternal Grandfather Cancer Maternal Grandfather Heart disease Maternal Grandfather Arthritis Maternal Grandmother Cancer Maternal Grandmother Thyroid disease Mother Arthritis Paternal Grandfather Arthritis Paternal Grandmother Cancer Paternal Grandmother Diabetes Paternal Grandmother Heart disease Paternal Grandmother Relation Name Status Comments Father Alive Maternal Grandfather Maternal Grandmother Mother Alive Paternal Grandfather Paternal Grandmother Social History Tobacco Use Types Packs/Day Years Used Date Smoking Tobacco: Former E-cigarettes Quit: 2019 Smokeless Tobacco: Never Tobacco Cessation:Counseling Given: Not [...] relatives? Three times a week 08/24/2021 Attends Buddhism Services Not on file 08/24 Active Member [...] on file Legal Sex Male 9:06 AM QUALITY SYSTEM MANAGER Gender Identity Male 09/10/2019 11:12 AM CDT Sexual Orientation Marcos 09/13/2021 7: 42 AM CDT Obstetrics History Last Filed Vital Signs Vital Sign Reading Time Taken Comments Blood Pressure 124/70 09/24/2023 11:37 AM CDT Pulse 70 09/24/2023 11:37 AM CDT Temperature 36.8 C (98.2 F) 09/24/2023 11:37 AM CDT Respiratory Rate 16 01/23/2023 11:10 AM QUALITY SYSTEM MANAGER Oxygen Saturation 98% 09/24/2023 11:37 AM CDT Inhaled Oxygen Concentration - - Weight 70.3 kg (155 lb) 09/24/2023 11:37 AM CDT Height 177.8 cm (5' 10 ) 09/24/2023 11:37 AM CDT Body Mass Index 22.24 09/24/2023 11:37 AM CDT Plan of Treatment Scheduled Procedures Name Priority Associated Diagnoses Date/Ti me TRANSPLANT KIDNEY ESRD (end stage renal disease) (HCC) Health Maintenance Due Date Last Done Comments Zoster Vaccine (1 of 2) 11/12/2015 Regular Well Visit/Exam 18-64 05/19/2023 05/18/2022 Covid-19 Vaccine ( season) 2023 12/22/2020, 05/12/2020, 04/22/2020 Depression Screening 09/23/2024 09/24/2023, 08/10/2023, 01/23/2023, Additional history exists Influenza Vaccine (Season Ended) 2024 11/21/2022, 12/06/2021, 12/23/2019, Additional history exists DTaP/Tdap/Td Vaccine (8 - Td or Tdap) 09/15/2026 09/15/2016, 01/01/2007, 10/31/2001, Additional history exists Varicella Vaccines Completed 11/22/2009, 11/09/1997 Hepatitis B Screening Completed 08/23/2021 , 08/01/1997, 01/12/1997, Additional history exists Hepatitis C Screening Completed 09/23/2021 , 08/23/2021, 08/23/2021, Additional history exists Pneumococcal vaccine <65 Completed 11/21/2022 HPV Vaccines Aged Out No longer eligi ble based on patient's age to complete this topic Medical Devices Implanted Type Area Publisher Assistant Device Identifier Shelf Expiration Date Model / Serial / Lot [email or web address] Bethany Angio-Seal Vip 6fr Closere Device [id number] - [id number] - [id number] Implanted:Qty: 1 on 10/11/2021 by Kenneth Islas MD at [facility] Collagen Right: Femoral [employer] Bethany 07/19/2022 [id number] / [id number] / [id number] [place] [employer] Bethany Stent Drug Eluting S Claire Caballero Mr 3.86u15my [id number] - [id number] - [id number] Implanted:Qty: 1 on 10/11/2021 by Tato Choi MD at [facility] Stent Right: Renal Artery [employer] Bethany 03/07/2022 [id number] / [id number] / [id number] Explanted Type Area Publisher Assistant Device Identifier Shelf Expiration Date Model / Serial / Lot [employer] Double-J 6fr 20cm 100cm 1 Step Insert Push Catheter [place] Suture [id number] - [id number] Implanted:Qt y: 1 on 08/23/2021 by Lincoln Carrero MD at [facility] Explanted:Qt y: 1 on 09/22/2021 by Beatriz Pollard NP Stent Right: Transplanted Ureter [employer] [id number] 09/22/2025 [id number] / [id number] Procedures Procedure Name Priority Date/Time Associated Diagnosis Comments HEPATITIS C RNA, QUANTITATIVE, PCR Routine 09/23/2021 9:00 AM CDT from Last 3 Months or Most Recently Relevant to Health Maintenance Results * Hepatitis C (HCV) RNA PCR, quantitative (09/23/2021 9:00 AM CDT) [facility] HCV RNA result Not Detected [facility] Comment: The quantifiable range of this assay is 15 IU/mL to 100,000,000 IU/mL (1.18 log IU/mL to 8.00 log IU/mL). Testing was performed by the [facility] 6800 HCV Test ([employer] Testing performed at [facility] Current Interpretive Data was last revised on 2020 Blood 09/23/2021 9:00 AM CDT 09/23/2021 1:26 PM CDT us Lincoln Carrero MD LAB MICROBIOLOGY - GENERAL ORDERABLES Final Result [facility] Department [place] [address] from Last 3 Months or Most Recently Relevant to Health Maintenance Insurance [employer] [facility] [id number] [facility] [address] MEDICARE [facility] [id number] [facility] Advance Directives For more information, please contact: [phone] * Full Code (Latest Code Status on File) Date Activated Date Inactivated Comments 08/23/2021 12:56 PM 08/26/2021 7:01 PM * Full Code Date Activated Date Inactivated Comments 08/23/2021 12:39 AM 08/23/2021 12:56 PM * Full Code Date Activated Date Inactivated Comments 05/18/2018 11:35 PM 05/22/2018 7:10 PM Care Teams Mitering Machine Operator Relationship Specialty Start Date End Date Yessy Wolfe NP PCP - General Family Medicine 03/24/19 Lexie Martin MD [address] [facility] [address] [place] [address] Referring Physician Nephrology 09/26/19 Yesy Gavin RN [address] [facility] [address] [place], [place] [id number] Adult Probation Officer 08/23/21
--- OUTSIDE RECORDS SUMMARY | 2024-05-25 19:52 | XMS_ITS ---
Author Organization Unknown Medications Medication Instructions Effective Dates (start - stop) Status mycophenolic acid 360 MG Del ayed Release Oral Tablet - Completed prednisone 5 MG Oral Tablet [id number] :00:00Z - Completed mycophenolic acid 360 MG Del ayed Release Oral Tablet - Completed famotidine 20 MG Oral Tablet [id number] 0:00:00Z - Completed amlodipine 5 MG Oral Tablet [id number] :00:00Z - Completed mycophenolic acid 360 MG Del ayed Release Oral Tablet - Completed tacrolimus 1 MG Oral Capsule [id number] 0:00:00Z - Completed prednisone 5 MG Oral Tablet [id number] :00:00Z - Completed 30/70 Release 24 HR methylphenidate hydrochloride 40 MG Extended Release Oral Capsule - Comp leted buspirone hydrochloride 15 M G Oral Tablet - Completed prednisone 5 MG Oral Tablet [id number] :00:00Z - Completed famotidine 20 MG Oral Tablet [id number] 0:00:00Z - Completed prednisone 5 MG Oral Tablet [id number] :00:00Z - Completed amlodipine 10 MG Oral Tablet [id number] 0:00:00Z - Completed tacrolimus 1 MG Oral Capsule [id number] 0:00:00Z - Completed prednisone 5 MG Oral Tablet [id number] :00:00Z - Completed mycophenolic acid 360 MG Del ayed Release Oral Tablet - Completed tacrolimus 1 MG Oral Capsule [id number] 0:00:00Z - Completed buspirone hydrochloride 7.5 MG Oral Tablet - Completed prednisone 5 MG Oral Tablet [id number] :00:00Z - Completed tacrolimus 1 MG Oral Capsule [id number] 0:00:00Z - Completed prednisone 5 MG Oral Tablet [id number] :00:00Z - Completed sertraline 100 MG Oral Tablet 2022-11-24 00:00:00Z - Completed amlodipine 10 MG Oral Tablet [id number] 0:00:00Z - Completed mycophenolic acid 360 MG Del ayed Release Oral Tablet - Completed mycophenolic acid 360 MG Del ayed Release Oral Tablet - Completed famotidine 20 MG Oral Tablet [id number] 0:00:00Z - Completed 24 HR bupropion hydrochlorid e 150 MG Extended Release Oral Tablet - Compl eted buspirone hydrochloride 7.5 MG Oral Tablet - Completed 24 HR bupropion hydrochlorid e 150 MG Extended Release Oral Tablet - Compl eted tacrolimus 1 MG Oral Capsule [id number] 0:00:00Z - Completed prednisone 5 MG Oral Tablet [id number] :00:00Z - Completed buspirone hydrochloride 15 M G Oral Tablet - Completed buspirone hydrochloride 15 M G Oral Tablet - Completed amlodipine 10 MG Oral Tablet [id number] 0:00:00Z - Completed famotidine 20 MG Oral Tablet [id number] 0:00:00Z - Completed famotidine 20 MG Oral Tablet [id number] 0:00:00Z - Completed sertraline 100 MG Oral Tablet 2022-09-23 00:00:00Z - Completed prednisone 5 MG Oral Tablet [id number] :00:00Z - Completed famotidine 20 MG Oral Tablet 2383-10-40G5 0:00:00Z - Completed tacrolimus 1 MG Oral Capsule [id number] 0:00:00Z - Completed prednisone 5 MG Oral Tablet [id number] :00:00Z - Completed amlodipine 10 MG Oral Tablet [id number] 0:00:00Z - Completed tacrolimus 1 MG Oral Capsule [id number] 0:00:00Z - Completed mycophenolic acid 360 MG Del ayed Release Oral Tablet - Completed mycophenolic acid 360 MG Del ayed Release Oral Tablet - Completed cefdinir 300 MG Oral Capsule [id number] 0:00:00Z - Completed prednisone 5 MG Oral Tablet [id number] :00:00Z - Completed mycophenolic acid 360 MG Del ayed Release Oral Tablet - Completed famotidine 20 MG Oral Tablet [id number] 0:00:00Z - Completed famotidine 20 MG Oral Tablet [id number] 0:00:00Z - Completed mycophenolic acid 180 MG Del ayed Release Oral Tablet - Completed amlodipine 5 MG Oral Tablet [id number] :00:00Z - Completed tacrolimus 1 MG Oral Capsule [id number] 0:00:00Z - Completed amlodipine 5 MG Oral Tablet [id number] :00:00Z - Completed 30/70 Release 24 HR methylphenidate hydrochloride 40 MG Extended Release Oral Capsule - Comp leted 30/70 Release 24 HR methylphenidate hydrochloride 40 MG Extended Release Oral Capsule - Comp leted tacrolimus 1 MG Oral Capsule [id number] 0:00:00Z - Completed amlodipine 10 MG Oral Tablet [id number] 0:00:00Z - Completed mycophenolic acid 360 MG Del ayed Release Oral Tablet - Completed amlodipine 10 MG Oral Tablet [id number] 0:00:00Z - Completed tacrolimus 1 MG Oral Capsule [id number] 0:00:00Z - Completed tacrolimus 1 MG Oral Capsule [id number] 0:00:00Z - Completed tacrolimus 1 MG Oral Capsule [id number] 0:00:00Z - Completed Patient Care team information Name Category Status Period Participants - - Proposed period not known -
--- OUTSIDE RECORDS SUMMARY | 2024-05-25 19:52 | XMS_ITS ---
Author Organization [facility] Address [address] [place] [address] Care Team Providers Care Liquid Sugar Fortifier Name Role Phone Yessy Wolfe NP Primary Care Provider [phone] Lexie Martin MD Unavailable [phone] Yesy Gavin RN Unavailable [phone] Transplant Episode Kidney Recipient [facility] ([place], [place]) - [facility] Organ Received: Left Kidney Transplanted on 08/23/2021 Marked as Active Follow-up on 08/23/2021 Reason: Transplanted at [facility] Kidney CoordinatorYesy Gavin RN Fax: N/A Email: N/A Donor Information Organ ABO Source Meets Risk Criteria HLA Match Mismatches Cross Match Left Kidney Transplanted O DBD No A: B: DR: Left Kidney Donor Serology Results Anti-CMV CMV IgG: Negative EBV IgG EBV VCA IgG: Positive Anti-HBcAb HBC Total: Negative HBsAg HBsAg: Negative HBV DNA No results on file Anti-HCV HCV: Negative Anti-HIV I/II No results on file Anti-HTLV I/II HTLV: Not Done RPR/VDRL RPR: Negative EBV IgM EBV VCA IgM: Positive HBsAb HBsAb: Not Done EBNA No results on file SARS CoV-2 No results on file Care Team Name Role Phone Fax Email Yesy Gavin RN Kidney Coordinator [phone] N/A N/A Payal Obrien Secondary Lpn Rn N/A N/A N/A Lanny Urena Primary Lpn Rn N/A N/A N/A Yesy Gavin, mainframe analystBottle Feeder [phone] N/A N/A Es Bustamante RN Secondary Coordinator Secondary Post Kidney Coordinator [phone] N/A N/A Kathe Drake Harness Cleaner [phone] N/A N/A Events Post-Transplant Pre-Transplant Admitted: 08/23/2021 Referred: 07/28/2019 Transplanted: 08/23/2021 Evaluation began: 0 Discharged: 08/26/2021 Committee: 09/22/2019 Center waitlisted: 0
--- OUTSIDE RECORDS SUMMARY | 2024-05-25 19:53 | XMS_ITS ---
Author Organization Unknown Medications Medication Instructions Effective Dates (start - stop) Status mycophenolic acid 360 MG Del ayed Release Oral Tablet - Completed prednisone 5 MG Oral Tablet [id number] :00:00Z - Completed mycophenolic acid 360 MG Del ayed Release Oral Tablet - Completed famotidine 20 MG Oral Tablet [id number] 0:00:00Z - Completed amlodipine 5 MG Oral Tablet [id number] :00:00Z - Completed mycophenolic acid 360 MG Del ayed Release Oral Tablet - Completed tacrolimus 1 MG Oral Capsule [id number] 0:00:00Z - Completed prednisone 5 MG Oral Tablet [id number] :00:00Z - Completed 30/70 Release 24 HR methylphenidate hydrochloride 40 MG Extended Release Oral Capsule - Comp leted buspirone hydrochloride 15 M G Oral Tablet - Completed prednisone 5 MG Oral Tablet [id number] :00:00Z - Completed famotidine 20 MG Oral Tablet 8420-13-88P9 0:00:00Z - Completed prednisone 5 MG Oral Tablet [id number] :00:00Z - Completed amlodipine 10 MG Oral Tablet [id number] 0:00:00Z - Completed tacrolimus 1 MG Oral Capsule [id number] 0:00:00Z - Completed prednisone 5 MG Oral Tablet [id number] :00:00Z - Completed mycophenolic acid 360 MG Del ayed Release Oral Tablet - Completed tacrolimus 1 MG Oral Capsule [id number] 0:00:00Z - Completed buspirone hydrochloride 7.5 MG Oral Tablet - Completed prednisone 5 MG Oral Tablet [id number] :00:00Z - Completed tacrolimus 1 MG Oral Capsule [id number] 0:00:00Z - Completed prednisone 5 MG Oral Tablet [id number] :00:00Z - Completed sertraline 100 MG Oral Tablet 2022-11-24 00:00:00Z - Completed amlodipine 10 MG Oral Tablet [id number] 0:00:00Z - Completed mycophenolic acid 360 MG Del ayed Release Oral Tablet - Completed mycophenolic acid 360 MG Del ayed Release Oral Tablet - Completed famotidine 20 MG Oral Tablet [id number] 0:00:00Z - Completed 24 HR bupropion hydrochlorid e 150 MG Extended Release Oral Tablet - Compl eted buspirone hydrochloride 7.5 MG Oral Tablet - Completed 24 HR bupropion hydrochlorid e 150 MG Extended Release Oral Tablet - Compl eted tacrolimus 1 MG Oral Capsule [id number] 0:00:00Z - Completed prednisone 5 MG Oral Tablet [id number] :00:00Z - Completed buspirone hydrochloride 15 M G Oral Tablet - Completed buspirone hydrochloride 15 M G Oral Tablet - Completed amlodipine 10 MG Oral Tablet [id number] 0:00:00Z - Completed famotidine 20 MG Oral Tablet [id number] 0:00:00Z - Completed famotidine 20 MG Oral Tablet [id number] 0:00:00Z - Completed sertraline 100 MG Oral Tablet 2022-09-23 00:00:00Z - Completed prednisone 5 MG Oral Tablet [id number] :00:00Z - Completed famotidine 20 MG Oral Tablet [id number] 0:00:00Z - Completed tacrolimus 1 MG Oral Capsule [id number] 0:00:00Z - Completed prednisone 5 MG Oral Tablet [id number] :00:00Z - Completed amlodipine 10 MG Oral Tablet [id number] 0:00:00Z - Completed tacrolimus 1 MG Oral Capsule [id number] 0:00:00Z - Completed mycophenolic acid 360 MG Del ayed Release Oral Tablet - Completed mycophenolic acid 360 MG Del ayed Release Oral Tablet - Completed cefdinir 300 MG Oral Capsule [id number] 0:00:00Z - Completed prednisone 5 MG Oral Tablet [id number] :00:00Z - Completed mycophenolic acid 360 MG Del ayed Release Oral Tablet - Completed famotidine 20 MG Oral Tablet [id number] 0:00:00Z - Completed famotidine 20 MG Oral Tablet [id number] 0:00:00Z - Completed mycophenolic acid 180 MG Del ayed Release Oral Tablet - Completed amlodipine 5 MG Oral Tablet [id number] :00:00Z - Completed tacrolimus 1 MG Oral Capsule [id number] 0:00:00Z - Completed amlodipine 5 MG Oral Tablet [id number] :00:00Z - Completed 30/70 Release 24 HR methylphenidate hydrochloride 40 MG Extended Release Oral Capsule - Comp leted 30/70 Release 24 HR methylphenidate hydrochloride 40 MG Extended Release Oral Capsule - Comp leted tacrolimus 1 MG Oral Capsule [id number] 0:00:00Z - Completed amlodipine 10 MG Oral Tablet [id number] 0:00:00Z - Completed mycophenolic acid 360 MG Del ayed Release Oral Tablet - Completed amlodipine 10 MG Oral Tablet [id number] 0:00:00Z - Completed tacrolimus 1 MG Oral Capsule [id number] 0:00:00Z - Completed tacrolimus 1 MG Oral Capsule [id number] 0:00:00Z - Completed tacrolimus 1 MG Oral Capsule [id number] 0:00:00Z - Completed Patient Care team information Name Category Status Period Participants - - Proposed period not known -
--- NOTE | 2024-05-25 20:24 | ED.MALEGU ---
HPI - Male Genitourinary General Chief complaint: Urogenital-Male Stated complaint: Urinary Problem Time Seen by Provider: 05/25/24 20:05 Source: patient, RN notes reviewed and old records reviewed Mode of arrival: ambulatory Limitations: no limitations History of Present Illness HPI Narrative: 28 year old male who presents to express care with complaints of getting out of the shower this evening and experiencing burning with urination. Patient reports that when that use to happen prior to his transplant he would get full blown kidney infection and end up in the hospital. He reports that he has not had any UTI's or kidney infections since his transplant. Patient denies any CVA tenderness or any visualized blood in urine, denies any urinary frequency or urgency. Patient reports no fevers, chills or sweats or any nausea or vomiting. Reports no concern for STD exposure. MD Complaint: other (urinary burning) Onset (ago): hour(s) (this evening after showering burned with urination) Duration: intermittent Location: penis Severity: mild Associated symptoms: Reports denies other symptoms Related Data Home Medications ?Medication ?Instructions ?Recorded ?Confirmed ?Last Taken ?Type amlodipine 10 mg tablet 10 mg PO BID 02/21/23 02/21/23 Unknown History cholecalciferol (vitamin D3) 125 5,000 unit PO DAILY 02/21/23 02/21/23 Unknown History mcg (5,000 unit) capsule (Dialyvite Vitamin D) famotidine 20 mg tablet 20 mg PO DAILY 02/21/23 02/21/23 Unknown History mycophenolate sodium 360 mg 360 mg PO DAILY 02/21/23 02/21/23 Unknown History tablet,delayed release prednisone 5 mg tablet 5 mg PO DAILY 02/21/23 02/21/23 Unknown History tacrolimus 1 mg capsule, 1 mg PO BID 02/21/23 02/21/23 Unknown History immediate-release Allergies Allergy/AdvReac Type Severity Reaction Status Date / Time amoxicillin Allergy Unknown Rash Verified 05/25/24 20:01 Review of Systems Review of Systems: CONSTITUTIONAL: Denies fever, chills, or sweats. CARDIOVASCULAR: Denies chest pain, palpitations, or edema. RESPIRATORY: Denies cough or dyspnea. GASTROINTESTINAL: Denies abdominal pain, nausea, vomiting, or diarrhea. GENITOURINARY: Reports dysuria this evening, reports no frequency, urgency. Denies flank pain or hematuria. SKIN: Denies rash or itching. MUSCULOSKELETAL: Denies back pain or myalgia. 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 There is no relevant family history pertinent to the presenting complaint Exam Narrative: GENERAL: Well-appearing, well-nourished, and in no acute distress. HEAD: Normocephalic, atraumatic. NECK: Supple. no lymphadenopathy CHEST: Clear to auscultation. No respiratory distress.SAO2 98% on room air HEART: Regular rate and rhythm. No murmur heard. Normal peripheral pulses. ABDOMEN: Soft, nontender, nondistended, normal active bowel sounds. No CVA tenderness reports some burning with urination noted this evening after showering, denies any blood noted in urine or any frequency or urgency with urination, denies any fevers or chills or any body aches EXTREMITIES: Normal range of motion. No edema. SKIN: Warm, dry, no rash. NEURO: No focal deficits. Alert and oriented x3. Course Course Emergency Course: Patient is aware of diagnosis, understands and agrees to treatment plan.? Anticipatory guidance given.? Patient agrees to follow-up as directed and is aware of reasons to seek care at the emergency department. Portions of this record may have been created with voice recognition software Level of Care: Express Care Visit Vital Signs Vital signs: Vital Signs Temperature 36.7 C 05/25/24 19:52 Pulse Rate 88 05/25/24 19:52 Respiratory Rate 20 05/25/24 19:52 Blood Pressure 154/94 H 05/25/24 19:52 Pulse Oximetry 98 05/25/24 19:52 Oxygen Delivery Room Air 05/25/24 19:52 Temperature 36.7 C 05/25/24 19:52 Pulse Rate 88 05/25/24 19:52 Respiratory Rate 20 05/25/24 19:52 Blood Pressure 154/94 H 05/25/24 19:52 Pulse Oximetry 98 05/25/24 19:52 Oxygen Delivery Room Air 05/25/24 19:52 Reviewed MDM - Male Genitourinary Differential Diagnosis Differential diagnosis: Likely urinary tract infection, urethritis and other (dysuria, cystitis) Medical Records Attestation: I reviewed the patient's medical records. Lab Data Attestation: I reviewed the patient's lab results. Lab results narrative: see urine dip results: Protein 1+ otherwise negative for leukocytes or blood Labs: Lab Results 05/25/24 Range/Units 20:02 POC Urine Color Light/pale POC Urine Clarity Cloudy POC Urine pH 6.5 POC Ur Specif [place] 1.020 POC Urine Protein 1+ (Negative) POC Ur Glucose (UA) Negative (Negative) POC Urine Ketones Negative (Negative) POC Urine Blood Negative (Negative) POC Urine Nitrite Negative (Negative) POC Urine Bilirubin Negative (Negative) POC Urine Urobilinogen 0.2 POC U Leukocyte Esteras Negative (Negative) reviewed Critical Care Time Critical Care Time Critical Care Time: No Discharge Plan Discharge Clinical Impression: Burning with urination, Kidney transplant recipient Patient Disposition: Home Condition: Stable Instructions: Urinary Tract Infection in Men (ED), Dysuria (ED) Additional Instructions: Patient to call promotions coordinator at [place] tomorrow and give her information about his urine test which was done in clinic tonight and see if they want him treated with antibiotic since only thing in test was some protein. Increase fluids especially cranberry juice and water Avoid caffeine and carbonated beverages Tylenol/ibuprofen for pain or fever Follow-up with her primary care provider if further problems or concerns Recheck if you have fever over 101, nausea and vomiting. If your symptoms persist, change or worsen significantly before you can contact your personal physician then please, without delay, go to the emergency department for further evaluation. Follow-up with PCP in 7-10 days or sooner if needed Follow up with PCP soon in regards to your blood pressure which is elevated above threshold for referral. Blood pressure above 120/80 may indicate pre-hypertension. 154/94 Urine sent for culture Patient Language: Spanish Prescriptions: No Action prednisone 5 mg tablet 5 mg PO DAILY famotidine 20 mg tablet 20 mg PO DAILY amlodipine 10 mg tablet 10 mg PO BID tacrolimus 1 mg capsule 1 mg PO BID mycophenolate sodium 360 mg tablet,delayed release (DR/EC) 360 mg PO DAILY cholecalciferol (vitamin D3) [Dialyvite Vitamin D] 125 mcg (5,000 unit) Capsule 5,000 unit PO DAILY Follow-up/Referrals: Yaneth,ARNOL Dukes [Primary Care Provider] - Time of Disposition: 20:37 Quality [place] Coma Scale Eyes: Open Verbal: Oriented and Alert Motor: Follows Commands [place] Coma Total Score: 15
[2024-05-25 20:32] LABS: EDUAAPPEAR Cloudy; EDUABILI Negative (Negative); EDUABLOOD Negative (Negative); EDUACOLOR1 Light/Pale; EDUAGLUCOSE Negative (Negative); EDUAKETONE Negative (Negative); EDUALEUKO Negative (Negative); EDUANITRATE Negative (Negative); EDUAPH 6.5; EDUAPROTEIN 1+ (Negative); EDUAUROBILI 0.2
== END 2024-05-25 20:40 | disposition home or self-care (01) ==
PROVIDERS: Emergency Provider Registered Nurse; PCP Nurse Practitioner Family
DX: R30.0 Dysuria (principal); Z94.0 Kidney transplant status; I10 Essential (primary) hypertension
CPT/HCPCS: 81003; 87086; 99213; G0463